=== PATIENT | male | born 2005 | race Caucasian/White ===

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

== ENCOUNTER 2023-09-10 09:46 | Emergency (ER) | payer OTHER ==
[~2023-09-10] VITALS: Ht 177.8 cm; Wt 100.7 kg
[~2023-09-10 09:46] MED LIST changes: +DICYCLOMINE HCL20 MG PO; +ONDANSETRON ODT4 MG PO; +QUETIAPINE FUMA25 MG PO
[2023-09-10 11:38] VITALS: BP 155/82
== END 2023-09-10 11:37 | disposition home or self-care (01) ==
LOC: ED 09:46
DX: S09.90XA Unspecified injury of head, initial encounter (principal); W22.8XXA Striking against or struck by other objects, initial encounter; Z79.899 Other long term (current) drug therapy
CPT/HCPCS: 70450; 99283-25

== ENCOUNTER 2024-03-03 16:18 | Emergency (ER) | payer OTHER ==
[~2024-03-03] VITALS: Ht 177.8 cm; Wt 112.2 kg
[2024-03-03] MEDS ORDERED: KETOROLAC TROMETHAMINE 60 MG/2 ML VIAL IM ONE (19:30)
[2024-03-03] MEDS ORDERED: CYCLOBENZAPRINE HCL 10 MG TAB PO ONE (19:30)
[2024-03-03] MEDS ORDERED: VITAMIN D21250 MCG PO (19:33)
[2024-03-03] MEDS ORDERED: BUPROPION HCL100 M1 PO (19:33)
[2024-03-03] MEDS ORDERED: CYCLOBENZAPRINE10 MG PO (20:28)
[2024-03-03] MEDS ORDERED: methylPREDNISolone 4 MG HOME.PACK PO ONE (20:30)
[2024-03-03] MEDS ORDERED: CYCLOBENZAPRINE HCL 10 MG HOME.PACK PO ONE (20:30)
[2024-03-03 21:00] VITALS: BP 154/96
== END 2024-03-03 21:00 | disposition home or self-care (01) ==
LOC: ED 16:18
DX: S39.012A Strain of muscle, fascia and tendon of lower back, initial encounter (principal); S16.1XXA Strain of muscle, fascia and tendon at neck level, initial encounter; F84.0 Autistic disorder; X50.1XXA Overexertion from prolonged static or awkward postures, initial encounter; Y93.89 Activity, other specified; Y99.0 Civilian activity done for income or pay; Z79.899 Other long term (current) drug therapy
CPT/HCPCS: 72040; 72070; 72100; 96372; 99283-25; J1885

== ENCOUNTER 2024-04-07 07:51 | Emergency (ER) | payer OTHER ==
[~2024-04-07] VITALS: Ht 177.8 cm; Wt 110.0 kg
[~2024-04-07 07:51] MED LIST changes: +BUPROPION HCL100 M1 PO; +CYCLOBENZAPRINE10 MG PO
--- OUTSIDE RECORDS SUMMARY | 2024-04-07 07:53 | XMS ---
PreManage Notification: KLAUS SCHULZ Security [employer] Events No recent Security Events currently on file CRITERIA MET - [facility] - 2 Visits in 30 Days CARE PROVIDERS ANNE HERNANDEZ Internal Medicine 12/14/2018-Current [facility] PHONE: [phone] ANNE HERNANDEZ, Registered 12/14/2018-Current PHONE: [phone] -, [facility] Dentist: Adventure Guide [facility] PHONE: [phone] -[place]- Dentist: Adventure Guide On License Of [facility] PHONE: [phone] Behzad has no Care Guidelines for this patient. Carmencita VISIT COUNT (12 MO.) 4 [facility] [place] TOTAL 4 NOTE: Visits indicate total known visits. ED/UCC VISIT TRACKING (12 MO.) 04/07/2024 07:51 [place] [place] TYPE: Emergency COMPLAINT: - LEG PAIN 04/05/2024 11:44 [facility] [place] TYPE: Emergency COMPLAINT: - WEAKNESS DIAGNOSES: - Other truck terminal manager (current) drug therapy - Weakness 03/03/2024 16:18 [facility] [place] TYPE: Emergency COMPLAINT: - NECK PAIN DIAGNOSES: - Activity, other specified - Autistic disorder - Civilian activity done for income or pay - Dorsalgia, unspecified - Other truck terminal manager (current) drug therapy - Overexertion from prolonged static or awkward postures, initial encounter - Strain of muscle, fascia and tendon at neck level, initial encounter - Strain of muscle, fascia and tendon of lower back, initial encounter 09/10/2023 09:47 [facility] [place] TYPE: Emergency COMPLAINT: - DIZZY, AMS, TROUBLE WALKING DIAGNOSES: - Other long-term (current) drug therapy - Striking against or struck by other objects, initial encounter - Unspecified injury of head, initial encounter INPATIENT VISIT TRACKING (12 MO.) No inpatient visits to display in this time frame [email or web address]
[2024-04-07] MEDS ORDERED: predniSONE 20 MG TAB PO ONE (11:30)
[2024-04-07] MEDS ORDERED: METHYLPREDNISOLO4 M1 PO (15:24)
[2024-04-07 15:50] VITALS: BP 152/92
== END 2024-04-07 15:51 | disposition home or self-care (01) ==
LOC: ED 07:51
DX: M51.17 Intervertebral disc disorders with radiculopathy, lumbosacral region (principal); Z79.899 Other long term (current) drug therapy
CPT/HCPCS: 72141; 72146; 72148; 99284-25; J7512

== ENCOUNTER 2024-11-10 01:39 | Emergency (ER) | payer OTHER ==
[~2024-11-10] VITALS: Ht 177.8 cm; Wt 124.7 kg
[~2024-11-10 01:39] MED LIST changes: +DICLOFENAC POTA50 MG PO; +METHYLPREDNISOLO4 M1 PO; +NEURONTIN300 MG PO
[2024-11-10 02:12] LABS: BASOPHILS 0.9 % (0-2); EOSINOPHILS 1.2 % (0-6); HEMATOCRIT 44.4 % (35.0-50.0); HEMOGLOBIN 15.7 g/dL (12.0-18.0); LYMPHOCYTES 41.1 % (24-44); MCH 28.9 (27-36); MCHC 35.3 g/dl (30-36); MCV 81.9 fl (81-99); MONOCYTES 10.6 % (0-12); NEUTROPHILS 46.2 % (39-80); PLATELET COUNT 342 K/uL (140-440); RBC 5.42 M/ul (4.3-5.7); RDW 14.1 (10.5-15.0)
[2024-11-10 02:14] LABS: BILIRUBIN, URINE NEGATIVE (negative); BLOOD/HGB, URINE NEGATIVE (Negative); KETONE, URINE NEGATIVE (Negative); LEUK ESTERASE, URINE NEGATIVE (negative); NITRITE, URINE NEGATIVE (negative); PH, URINE 5.5 (5-7)
[2024-11-10 02:18] LABS: EPITHELIAL CELLS, URINE SQUAMOUS 1+ /lpf (0-1+)
[2024-11-10 02:19] LABS: BACTERIA, URINE RARE /hpf (negative); CASTS, URINE NONE SEEN \\lpf; COLLECTION TYPE, URINE CLEAN CATCH; CRYSTALS, URINE NONE SEEN (0-1+); RED BLOOD CELLS, URINE 0-1 /hpf (0-5); REFLEX CULTURE, URINE No (No)
[2024-11-10 02:27] LABS: ALBUMIN 3.7 g/dL (3.4-5.0); ALBUMIN/GLOBULIN RATIO 0.86 (1.1-2.4); ANION GAP 13.5 (7-21); BILIRUBIN, TOTAL 0.4 ng/dL (0.2-1.0); BUN/CREATININE RATIO 11.92 (6.0-28.6); CREATININE, SERUM 1.09 mg/dL (0.70-1.30); MAGNESIUM 1.9 mg/dL (1.8-2.4); POTASSIUM 3.5 mmol/L (3.5-5.1)
[2024-11-10 03:43] VITALS: BP 162/88
== END 2024-11-10 03:43 | disposition home or self-care (01) ==
LOC: ED 01:39
PROVIDERS: Family Medicine
DX: R10.9 Unspecified abdominal pain (principal); S06.0X0A Concussion without loss of consciousness, initial encounter; F84.0 Autistic disorder; Z79.899 Other long term (current) drug therapy; W22.8XXA Striking against or struck by other objects, initial encounter
CPT/HCPCS: 36415; 70450; 80053; 81001; 83735; 85025; 99284-25

== ENCOUNTER 2025-06-05 14:21 | Emergency (ER) | payer OTHER ==
[~2025-06-05] VITALS: Ht 177.8 cm; Wt 100.0 kg
[2025-06-05] MEDS ORDERED: LIDOCAINE HCL 4% 1 EACH PATCH TD ONE (15:15)
[2025-06-05] MEDS ORDERED: IBUPROFEN 600 MG TAB PO ONE (15:15)
[2025-06-05] MEDS ORDERED: ASPERCREME1 EACH TD (15:17)
[2025-06-05] MEDS ORDERED: IBU600 MG PO (15:17)
[2025-06-05] MEDS ORDERED: CYCLOBENZAPRINE10 MG PO (15:17)
[2025-06-05 15:26] VITALS: BP 140/84
--- NOTE | 2025-06-05 17:06 | EKG ---
[facility] [address] [facility] [place] [address] Signed Normal sinus rhythm with sinus arrhythmia Normal ECG When compared with ECG of 16-MAY-2024 11:11, No significant change was found Confirmed by Ozzie Bentley MD ([id number]) on 06/05/2025 5:06:25 PM Electronically Signed By: OZZIE BENTLEY MD 06/05/25 1706 PATIENT NAME: KLAUS SCHULZ MARGOT Electrocardiogram DATE OF : [birth year] PHYSICIAN: OZZIE BENTLEY MD REPORT #: [id number] REPORT IS CONFIDENTIAL AND NOT TO BE RELEASED WITHOUT AUTHORIZATION
[2025-06-05] MEDS ORDERED: LIDOCAINE PATCH REMOVAL 1 EA TD SCH (21:00)
== END 2025-06-05 15:40 | disposition home or self-care (01) ==
LOC: ED 14:21
DX: M54.50 Low back pain, unspecified (principal)
CPT/HCPCS: 93005; 93010; 99283; A9270